=== PATIENT | female | born 1990 | race Caucasian/White ===

== ENCOUNTER → 2019-05-23 | Outpatient (CLI) | payer OTHER ==
[2019-05-23 17:44] LABS: ALBUMIN 4.3 GM/DL (3.2-5.2); ALT/SGPT 45 U/L (12-78); BILIRUBIN,TOTAL 0.3 MG/DL (0.2-1.0); BLOOD UREA NITROGEN 11 MG/DL (7-18); CALCIUM LEVEL 9.3 MG/DL (8.5-10.1); CARBON DIOXIDE LEVEL 27 MEQ/L (21-32); CHLORIDE LEVEL 108 MEQ/L (98-107); CREATININE FOR GFR 0.96 MG/DL (0.55-1.30); GLOMERULAR FILTRATION RATE > 60.0 (>60); GLUCOSE, FASTING 84 MG/DL (70-100); POTASSIUM SERUM 4.1 MEQ/L (3.5-5.1); SODIUM LEVEL 141 MEQ/L (136-145); TOTAL PROTEIN 7.3 GM/DL (6.4-8.2)
[2019-05-23 18:12] LABS: HCG, SERUM QUALITATIVE NEGATIVE (NEGATIVE)
[2019-05-23 18:22] LABS: HEMATOCRIT 44.7 % (36.0-47.0); HEMOGLOBIN 15.4 g/dl (12.0-15.5); MEAN CORPUSCULAR HEMOGLOBIN 30.9 pg (27.0-33.0); MEAN CORPUSCULAR HGB CONC 34.5 g/dl (32.0-36.5); MEAN CORPUSCULAR VOLUME 89.8 fl (80.0-96.0); PLATELET COUNT, AUTOMATED 302 10^3/uL (150-450); RED BLOOD COUNT 4.98 10^6/uL (4.00-5.40)
== END ==
LOC: M SMT 14:08
PROVIDERS: ATTEND Advanced Practice Midwife
DX: E28.2 Polycystic ovarian syndrome (principal)

== ENCOUNTER → 2019-07-16 | Outpatient (CLI) | payer OTHER ==
[2019-07-16 14:11] LABS: FREE T4 0.95 NG/DL (0.76-1.46); THYROID STIMULATING HORMONE 0.957 uIU/ML (0.358-3.740)
[2019-07-16 14:12] LABS: PROLACTIN 13.4 NG/ML
[2019-07-16 14:13] LABS: FOLLICLE STIMULATING HORMONE 5.9 mIU/mL; LUTEINIZING HORMONE 5.1 mIU/mL
[2019-07-20 08:10] LABS: 17 HYDROXY PROGESTERONE 22 ng/dL (.); DEHYDROEPIANDROSTERONE SULFATE 391.9 ug/dL (84.8-378.0); TESTOSTERONE FREE (DIRECT) 4.2 pg/mL (0.0-4.2)
== END ==
LOC: M SMT 11:36
PROVIDERS: ATTEND Advanced Practice Midwife
DX: E28.2 Polycystic ovarian syndrome (principal); Z31.69 Encounter for other general counseling and advice on procreation

== ENCOUNTER → 2019-08-03 | Outpatient (CLI) | payer OTHER | LOC: M SMT 09:57 | PROVIDERS: ATTEND Advanced Practice Midwife | DX: E28.2 Polycystic ovarian syndrome (principal); Z31.69 Encounter for other general counseling and advice on procreation ==

== ENCOUNTER → 2019-09-20 | Outpatient (CLI) | payer OTHER ==
[2019-09-20 17:25] LABS: BASO % 0.3 % (0.0-1.0); EOS # 0.2 10^3/uL (0.0-0.5); EOS % 1.7 % (0.0-3.0); HEMATOCRIT 42.2 % (36.0-47.0); HEMOGLOBIN 14.3 g/dl (12.0-15.5); LYMPH # 1.9 10^3/uL (1.5-5.0); LYMPH % 17.7 % (24.0-44.0); MEAN CORPUSCULAR HEMOGLOBIN 30.8 pg (27.0-33.0); MEAN CORPUSCULAR HGB CONC 33.9 g/dl (32.0-36.5); MEAN CORPUSCULAR VOLUME 90.9 fl (80.0-96.0); MONO # 0.8 10^3/uL (0.0-0.8); MONO % 7.7 % (0.0-5.0); NEUTROPHILS # 7.7 10^3/uL (1.5-8.5); NEUTROPHILS % 72.2 % (36.0-66.0); PLATELET COUNT, AUTOMATED 277 10^3/uL (150-450); RED BLOOD COUNT 4.64 10^6/uL (4.00-5.40); WHITE BLOOD COUNT 10.7 10^3/uL (4.0-10.0)
[2019-09-20 22:12] LABS: CHLAMYDIA DNA AMPLIFICATION NEGATIVE (NEGATIVE); GC DNA AMPLIFICATION NEGATIVE (NEGATIVE)
[2019-09-21 10:56] LABS: HEPATITIS C VIRUS ABY INDEX 0.1 INDEX (<0.8); HIV 1&2 SCREEN CENTAUR NEGATIVE (NEGATIVE); RUBELLA IgG QUALITATIVE IMMUNE (IMMUNE)
== END ==
LOC: M PLALAB 15:09
PROVIDERS: ATTEND Advanced Practice Midwife
DX: O36.80X0 Pregnancy with inconclusive fetal viability, not applicable or unspecified (principal); Z3A.00 Weeks of gestation of pregnancy not specified

== ENCOUNTER 2019-10-06 05:00 | Emergency (ER) | payer OTHER ==
[~2019-10-06] VITALS: Ht 154.9 cm; Wt 61.8 kg
[2019-10-06] MEDS ORDERED: METF500T13 PO (05:05)
[2019-10-06] MEDS ORDERED: PREN1TAB11 PO (05:05)
[2019-10-06] MEDS ORDERED: LEVALBUTEROL 1.25 MG/0.5 ML CONCENTRATE NEB INH PRN (06:45)
[2019-10-06] MEDS ORDERED: NS 1,000 ML IV ONE (07:30)
[2019-10-06 08:05] LABS: HEMATOCRIT 37.5 % (36.0-47.0); HEMOGLOBIN 13.1 g/dl (12.0-15.5); MEAN CORPUSCULAR HEMOGLOBIN 31.2 pg (27.0-33.0); MEAN CORPUSCULAR HGB CONC 34.9 g/dl (32.0-36.5); MEAN CORPUSCULAR VOLUME 89.3 fl (80.0-96.0); PLATELET COUNT, AUTOMATED 224 10^3/uL (150-450); WHITE BLOOD COUNT 10.9 10^3/uL (4.0-10.0)
[2019-10-06 08:42] LABS: ALBUMIN 3.3 GM/DL (3.2-5.2); ALT/SGPT 23 U/L (12-78); BILIRUBIN,TOTAL 0.3 MG/DL (0.2-1.0); BLOOD UREA NITROGEN 9 MG/DL (7-18); CALCIUM LEVEL 8.7 MG/DL (8.5-10.1); CARBON DIOXIDE LEVEL 24 MEQ/L (21-32); CHLORIDE LEVEL 107 MEQ/L (98-107); CREATININE FOR GFR 0.66 MG/DL (0.55-1.30); GLOMERULAR FILTRATION RATE > 60.0 (>60); GLUCOSE, FASTING 79 MG/DL (70-100); HCG, SERUM QUANTITATIVE 119152 MIU/ML; SODIUM LEVEL 139 MEQ/L (136-145); TOTAL PROTEIN 6.7 GM/DL (6.4-8.2)
[2019-10-06 09:19] VITALS: BP 118/70
--- NOTE | 2019-10-06 09:43 | REP ---
REASON: Vaginal bleeding. Within the uterus there is an anechoic structure with increased echoes surrounding it consistent with a decidual reaction within the gestational sac there is echogenic material. The mean crown-rump length measurement of which is consistent with a 12 week 4 day gestational age. Based on that the estimated date of delivery is 01/14/2020. Doppler interrogation of the heart shows a heart rate of 155 beats per minute. No chorionic or subchorionic abnormality was noted. Evaluation of the maternal adnexal spaces showed no abnormalities. IMPRESSION:Early OB ultrasound as described above. Electronically Signed by Meño Hutchison DO 10/06/2019 10:21 A
== END 2019-10-06 09:29 | disposition home or self-care (01) ==
LOC: M ED 05:00
DX: O20.9 Hemorrhage in early pregnancy, unspecified (principal); Z3A.12 12 weeks gestation of pregnancy; Z79.84 Long term (current) use of oral hypoglycemic drugs

== ENCOUNTER → 2019-10-18 | Outpatient (CLI) | payer OTHER ==
[~2019-10-18] MED LIST: METF500T13 PO; PREN1TAB11 PO
== END ==
LOC: M PLALAB 14:39
PROVIDERS: ATTEND Advanced Practice Midwife
DX: Z13.79 Encounter for other screening for genetic and chromosomal anomalies (principal)

== ENCOUNTER → 2019-11-15 | Outpatient (REF) | payer OTHER | LOC: M SFHCWAGY 17:09 | PROVIDERS: ATTEND Advanced Practice Midwife | DX: Z34.91 Encounter for supervision of normal pregnancy, unspecified, first trimester (principal) ==

== ENCOUNTER → 2019-11-30 | Outpatient (CLI) | payer OTHER ==
--- NOTE | 2019-11-30 14:20 | REP ---
Clinical: Anatomical evaluation. Comparison: None . Findings: Examination demonstrates a single live intrauterine in transverse (head to maternal right) presentation. motion is identified by technologist. Placenta is noted anterior and grade I without evidence for placenta previa or abruption. Placenta tip is 2 cm from the closed internal os. Amniotic fluid volume is normal. Cervix measures 3.1 cm in length and appears closed. No evidence for nuchal cord. Gestational age by LMP 20 weeks 0 days with ADENIKE 04/18/2020. Gestational age by current measurements 19 weeks 4 days with ADENIKE 04/25/2020 . FHR equals 139 beats per minute. Estimated weight 313 grams ( 41st percentile). Anatomical assessment demonstrates normal structures including cranium, choroid plexus, cavum, cerebellum/posterior fossa, facial features, lungs, four-chamber heart/ventricular outflow tracts, diaphragm, stomach, cord insertion/three-vessel cord, kidneys/bladder, and extremities. Limited evaluation of the spine due to positioning. Impression: 1. Single live intrauterine in transverse lie demonstrating appropriate interval growth. 2. With exception of the spine, anatomical assessment is complete and normal.
== END ==
LOC: M WHC 12:55
PROVIDERS: ATTEND Advanced Practice Midwife
DX: O34.211 Maternal care for low transverse scar from previous cesarean delivery (principal); Z3A.19 19 weeks gestation of pregnancy

== ENCOUNTER → 2019-12-13 | Outpatient (REF) | payer OTHER | LOC: M SFHCWAGY 13:44 | PROVIDERS: ATTEND Advanced Practice Midwife | DX: O34.211 Maternal care for low transverse scar from previous cesarean delivery (principal); Z3A.00 Weeks of gestation of pregnancy not specified | CPT/HCPCS: 87086; G0463 ==

== ENCOUNTER → 2019-12-27 | Outpatient (CLI) | payer OTHER ==
--- NOTE | 2019-12-28 06:35 | REP ---
Clinical: Anatomical evaluation. Comparison: 11/30/2019 . Findings: Examination demonstrates a single live intrauterine in cephalic presentation. motion is identified by technologist. Placenta is noted anterior and grade I and there are suggestions for marginal previa with the placenta measuring 10-15 mm from the internal os. Small amount of funneling is suggested, with the closed portion of the cervix measuring up to 4 cm. Gestational age by LMP 23 weeks 6 days with ADENIKE 04/18/2020 . Gestational age by current measurements 23 weeks for the with ADENIKE 04/20/2020 . FHR equals 133 beats per minute. Estimated weight 671 grams ( 56 percentile). Anatomical assessment demonstrates normal structures including cranium, choroid plexus, cavum, cerebellum/posterior fossa, facial features, lungs, four-chamber heart/ventricular outflow tracts, diaphragm, stomach, cord insertion/three-vessel cord, kidneys/bladder, spine, and extremities. Impression: 1. Single live intrauterine in cephalic presentation demonstrating appropriate interval growth. Anatomical assessment is complete and normal. 2. Anterior grade 1 placenta with tip approximately 10-15 mm from the os. There appears to be a small amount of funneling with a closed cervix measuring up to approximately 4 cm.
== END ==
LOC: M WHC 09:03
PROVIDERS: ATTEND Advanced Practice Midwife
DX: O34.211 Maternal care for low transverse scar from previous cesarean delivery (principal)

== ENCOUNTER → 2020-01-09 | Outpatient (REF) | payer OTHER ==
[2020-01-09 13:36] LABS: HEMATOCRIT 35.1 % (36.0-47.0); HEMOGLOBIN 11.8 g/dl (12.0-15.5); MEAN CORPUSCULAR HEMOGLOBIN 30.6 pg (27.0-33.0); MEAN CORPUSCULAR HGB CONC 33.6 g/dl (32.0-36.5); MEAN CORPUSCULAR VOLUME 91.2 fl (80.0-96.0); PLATELET COUNT, AUTOMATED 244 10^3/uL (150-450); RED BLOOD COUNT 3.85 10^6/uL (4.00-5.40); WHITE BLOOD COUNT 10.3 10^3/uL (4.0-10.0)
== END ==
LOC: M PLALAB 09:17
PROVIDERS: ATTEND Obstetrics & Gynecology
DX: O34.211 Maternal care for low transverse scar from previous cesarean delivery (principal)

== ENCOUNTER → 2020-02-20 | Outpatient (CLI) | payer OTHER ==
--- NOTE | 2020-02-21 03:31 | REP ---
Clinical: Anatomical evaluation. Comparison: 12/27/2019 Findings: Examination demonstrates a single live intrauterine in cephalic presentation. motion is identified by technologist. Placenta is noted anterior and grade I without evidence for placenta previa or abruption. The placenta is 4 cm from the closed internal os. Amniotic fluid volume is normal. Cervix measures 3.1 cm in length and appears closed. No evidence for nuchal cord. Gestational age by LMP 31 weeks 5 days with ADENIKE 04/18/2020 . Gestational age by current measurements 31 weeks 3 days' with ADENIKE 04/20/2020 . FHR equals 142 beats per minute. Amniotic fluid index: 14.3 cm Estimated weight by biometrical measurements 1855 grams ( 46th percentile). Impression: 1. Single live intrauterine in cephalic presentation demonstrating appropriate interval growth. 2. Anterior placenta 4 cm from the closed internal os.
== END ==
LOC: M WHC 14:30
PROVIDERS: ATTEND Nurse Practitioner Women's Health
DX: O34.211 Maternal care for low transverse scar from previous cesarean delivery (principal); Z3A.31 31 weeks gestation of pregnancy; O44.43 Low lying placenta NOS or without hemorrhage, third trimester

== ENCOUNTER 2020-03-10 14:05 | Outpatient (CLI) | payer OTHER ==
[~2020-03-10] VITALS: Ht 152.4 cm; Wt 63.5 kg
[2020-03-10 14:29] VITALS: BP 113/67
[2020-03-10] MEDS ORDERED: MAPA500T2 PO (14:40)
[2020-03-10] MEDS ORDERED: LACTATED RINGER'S 1000 ML IV ONE (14:45)
[2020-03-10] MEDS ORDERED: LR 1,000 ML IV SCH (14:45)
[2020-03-10] MEDS ORDERED: ONDANSETRON 4MG/2ML VIAL IV SCH (15:00)
[2020-03-10 15:15] VITALS: BP 114/68
[2020-03-10 15:21] LABS: APPEARANCE, URINE HAZY (CLEAR); BACTERIA, URINE AUTO NEGATIVE (NEGATIVE); BILIRUBIN, URINE AUTO NEGATIVE (NEGATIVE); BLOOD, URINE BLOOD NEGATIVE (NEGATIVE); CALCIUM OXALATE CRYSTALS SMALL; COLOR, URINE AMBER (YELLOW); GLUCOSE, URINE (UA) AUTO NEGATIVE (NEGATIVE); KETONE, URINE AUTO 1+ mg/dL (NEGATIVE); LEUKOCYTE ESTERASE, URINE AUTO NEGATIVE (NEGATIVE); MUCUS, URINE SMALL (NEGATIVE); NITRITE, URINE AUTO NEGATIVE (NEGATIVE); PROTEIN, URINE AUTO 1+ mg/dL (NEGATIVE); RBC, URINE AUTO 3 /HPF (0-3); SPECIFIC GRAVITY URINE AUTO 1.032 (1.002-1.035); SQUAMOUS EPITHELIAL CELL UR AU 16 /HPF (0-6); WBC, URINE AUTO 4 /HPF (0-3)
--- NOTE | 2020-03-10 15:35 | IPNPDOC ---
Text Note Date of Service The patient was seen on 03/10/20. NOTE Subjective: Patient is a 30-year-old female who is a at 34 weeks 3 days gestation with an ADENIKE of 04/18/20 based off of her LMP and consistent with her first trimester ultrasound. Her has been complicated by a prior section, a low lying placenta that is now resolved, and PCOS that required Clomid to help with ovulation. She presents with cramping and back pain that started this morning. She attempted to take Tylenol and vomited it up. She reports she presented to L&D because the cramping became more consistent and slightly more uncomfortable. Her back pain is not lower but more mid back. Reports pain is the same bilaterally. She reports active movement. She denies leaking of fluid or vaginal bleeding. Past medical history: Epps's Palsy; PCOS with ovulatory dysfunction Surgical history: section; wisdom teeth extraction; tonsillectomy; vagal schwannoma removal Social history: , no history of STDs, denies being a smoker, denies use of drugs or use of alcohol Family history: Hyperlipidemia, HTN; breast cancer, ovarian cancer, prostate cancer; diabetes, anemia, lung cancer Past Pregnancies: 11/09/2017: section of a living child due to arrest of dilation Objective: VS and labs: see below. FHR is 120, moderate variability, positive accelerations, no decelerations. Contractions: 2-6 minutes lasting 20 second to 90 seconds. A+O x3; Respiratory rate is regular with no use of accessory muscles; Abdomen: soft between contractions with mild tightness with palpation of contraction. Negative CVA tenderness. SVE: 1/60/-2, anterior, moderate to soft consistency, with scant bloody show with exam. Assessment: IUP at 34.3 weeks gestation, contractions, renal calculus of right kidney Plan: Saline lock started. Urine sent for UA. LR bolus started and IV Zofran ordered. Patient found to have calcium oxalate in her urine. Renal sono ordered showing a 6x5mm renal calculus in the the lower pole of the right kidney. Patient reports that she is no longer feeling in abdominal cramping but her back pain is still slightly there but it feels better. She rates her pain a 5/10 that is constant. Dose of Flomax given now and 14 days sent to pharmacy. Dose of Percocet given to patient now and order for 15 tabs sent to pharmacy. Reviewed signs that patient needs to call office with including: severe pain, fever, and inability to urinate. Patient has an appointment this week and is to follow-up at her appointment. Discharged to home. Reviewed access to care, kick count, labor signs, and danger signs to report. VS,Fishbone, I+O VS, Fishbone, I+O Vital Signs Label Value Date Time Patient Temperature 98.7 degrees F 03/10/20 142 Temperature Source Temporal 03/10/20 142 Pulse 94 03/10/20 142 Respiratory Rate 16 bpm 03/10/20 142 Blood Pressure Assessment 113/67 (82) 03/10/20 142 Source Automatic Cuff (NIBP) Bedside Pulse Oximetry 100 % 03/10/20 1429 Item Value Date Time White Blood Count 10.8 10^3/uL H 03/10/20 1500 Red Blood Count 3.61 10^6/uL L 03/10/20 1500 Hemoglobin 11.2 g/dl L 03/10/20 1500 Hematocrit 32.4 % L 03/10/20 1500 Mean Corpuscular Volume 89.8 fl 03/10/20 1500 Mean Corpuscular Hemoglobin 31.0 pg 03/10/20 1500 Mean Corpuscular Hemoglobin Concent 34.6 g/dl 03/10/20 1500 Red Cell Distribution Width 12.2 % 03/10/20 1500 Platelet Count 157 10^3/uL 03/10/20 1500 Item Value Date Time Urine Color JANETH 03/10/20 1500 Urine Appearance HAZY 03/10/20 1500 Urine pH 7.0 UNITS 03/10/20 1500 Urine Specific [place] 1.032 03/10/20 1500 Urine Protein 1+ mg/dL H 03/10/20 1500 Urine Glucose (Auto)(UA) NEGATIVE mg/dL 03/10/201499 Urine Ketones (Auto) 1+ mg/dL H 03/10/20 1500 Urine Blood NEGATIVE 03/10/20 1500 Urine Nitrite NEGATIVE 03/10/20 1500 Urine Bilirubin NEGATIVE 03/10/20 1500 Urine Urobilinogen 2.0 mg/dL H 03/10/20 1500 Urine Leukocyte Esterase (Auto) NEGATIVE 03/10/20 1500 Urine WBC (Auto) 4 /HPF H 03/10/20 1500 Urine RBC (Auto) 3 /HPF 03/10/20 1500 Urine Hyaline Casts (Auto) 0 /LPF 03/10/20 1500 Urine Bacteria (Auto) NEGATIVE 03/10/20 1500 Urine Squamous Epithelial Cells 16 /HPF 03/10/20 1500 Urine Calcium Oxalate Cryst (Auto) SMALL 03/10/20 1500 Urine Mucus (Auto) SMALL 03/10/20 1500 EXAMINATION REQUESTED: RENAL US REASON FOR PATIENT VISIT: SEVERE BACK PAIN; CONTRACTIONS REASON FOR EXAMINATION: severe back pain bilaterally with calcium oxalate in urine PROCEDURE INFORMATION: Exam: US Retroperitoneal Limited, Kidneys Exam date and time: 03/10/2020 5:36 PM Age: 30 years old Clinical indication: Other: Back pain; ; Additional info: Severe back pain bilaterally with calcium oxalate in urine TECHNIQUE: Imaging protocol: Real-time ultrasound of the retroperitoneum with image documentation. Examination was focused on the kidneys. COMPARISON: No relevant prior studies available. FINDINGS: Right kidney: Right kidney measures 11 cm in length. There is mild to moderate hydronephrosis. Blood flow is detected. There is an echogenic focus in the lower pole which may represent a calculus measuring 6 x 5 mm. The resistive index is 0.53. Left kidney: Left kidney measures 10.4 cm in length. There is no hydronephrosis and no shadowing calculi. Blood flow is detected. The resistive index is 0.52 Bladder: Bilateral ureteral jets are apparent in the urinary bladder. IMPRESSION: [id number] right hydronephrosis. Both ureters are patent since ureteral jets are apparent. There is a probable nonobstructing calculus in the lower pole of the right kidney measuring 6 x 5 mm. cardiac activity was noted with a heart rate of 141 bpm. Electronically signed by: Christal Roberto On 03/10/2020 17:52:50 P ABDIAS MCWILLIAMS CNM March 10, 2020 15:35
[2020-03-10 15:43] LABS: HEMATOCRIT 32.4 % (36.0-47.0); HEMOGLOBIN 11.2 g/dl (12.0-15.5); MEAN CORPUSCULAR HGB CONC 34.6 g/dl (32.0-36.5); MEAN CORPUSCULAR VOLUME 89.8 fl (80.0-96.0); PLATELET COUNT, AUTOMATED 157 10^3/uL (150-450); RED BLOOD COUNT 3.61 10^6/uL (4.00-5.40); WHITE BLOOD COUNT 10.8 10^3/uL (4.0-10.0)
--- NOTE | 2020-03-10 17:53 | REPVR ---
PROCEDURE INFORMATION: Exam: US Retroperitoneal Limited, Kidneys Exam date and time: 03/10/2020 5:36 PM Age: 30 years old Clinical indication: Other: Back pain; ; Additional info: Severe back pain bilaterally with calcium oxalate in urine TECHNIQUE: Imaging protocol: Real-time ultrasound of the retroperitoneum with image documentation. Examination was focused on the kidneys. COMPARISON: No relevant prior studies available. FINDINGS: Right kidney: Right kidney measures 11 cm in length. There is mild to moderate hydronephrosis. Blood flow is detected. There is an echogenic focus in the lower pole which may represent a calculus measuring 6 x 5 mm. The resistive index is 0.53. Left kidney: Left kidney measures 10.4 cm in length. There is no hydronephrosis and no shadowing calculi. Blood flow is detected. The resistive index is 0.52 Bladder: Bilateral ureteral jets are apparent in the urinary bladder. IMPRESSION: [id number] right hydronephrosis. Both ureters are patent since ureteral jets are apparent. There is a probable nonobstructing calculus in the lower pole of the right kidney measuring 6 x 5 mm. cardiac activity was noted with a heart rate of 141 bpm. Electronically signed by: Christal Roberto On 03/10/2020 17:52:50 PM
[2020-03-10] MEDS ORDERED: FLOM0.4C39 PO (18:19)
[2020-03-10] MEDS ORDERED: PERC5TAB12 PO (18:21)
[2020-03-10] MEDS ORDERED: PERCOCET 5MG/325MG TAB PO ONE (18:30)
[2020-03-10] MEDS ORDERED: TAMSULOSIN 0.4 MG CAP PO SCH (18:30)
[2020-03-10 18:32] VITALS: BP 117/75
== END 2020-03-10 19:18 | disposition home or self-care (01) ==
LOC: M LDO 14:05
PROVIDERS: ATTEND Advanced Practice Midwife
DX: O26.893 Other specified pregnancy related conditions, third trimester (principal); M54.9 Dorsalgia, unspecified; R10.30 Lower abdominal pain, unspecified; O26.833 Pregnancy related renal disease, third trimester; N13.2 Hydronephrosis with renal and ureteral calculous obstruction; Z3A.34 34 weeks gestation of pregnancy
CPT/HCPCS: 59025; 76775; 81001; 85027; 87086; G0378; G0463; J2405

== ENCOUNTER → 2020-03-28 | Outpatient (REF) | payer OTHER ==
[~2020-03-28] MED LIST changes: +FLOM0.4C39 PO; +IBUP80TA PO; +MAPA500T2 PO; +PERC5TAB12 PO; +PERCOCET PO
== END ==
LOC: M PLALAB 12:14
PROVIDERS: ATTEND Advanced Practice Midwife
DX: O34.211 Maternal care for low transverse scar from previous cesarean delivery (principal)
CPT/HCPCS: 36415; 87081; 87186; 87389; G0463

== ENCOUNTER 2020-04-14 07:05 | Inpatient (IN) | payer OTHER ==
[2020-04-14] VITALS (8 sets, daily range): BP systolic 113–135; BP diastolic 70–86
[~2020-04-14] VITALS: Ht 152.4 cm; Wt 66.6 kg
[~2020-04-14 07:05] MED LIST changes: -IBUP80TA PO; -PERCOCET PO
[2020-04-14] MEDS ORDERED: LACTATED RINGER'S 1000 ML IV STA (07:41)
[2020-04-14] MEDS ORDERED: LR 1,000 ML IV SCH ×3 (07:41→11:21)
[2020-04-14] MEDS ORDERED: BICITRA 30ML SOLN UDC PO ONE ×2 (07:45)
[2020-04-14] MEDS ORDERED: LR 1,000 ML IV ONE (07:45)
[2020-04-14] MEDS ORDERED: ceFAZolin SOD 2 GM in IV 1 EA IV ONE ×4 (07:45)
[2020-04-14 08:19] LABS: HEMATOCRIT 34.9 % (36.0-47.0); HEMOGLOBIN 11.8 g/dl (12.0-15.5); MEAN CORPUSCULAR HEMOGLOBIN 30.6 pg (27.0-33.0); MEAN CORPUSCULAR HGB CONC 33.8 g/dl (32.0-36.5); MEAN CORPUSCULAR VOLUME 90.6 fl (80.0-96.0); PLATELET COUNT, AUTOMATED 159 10^3/uL (150-450); RED BLOOD COUNT 3.85 10^6/uL (4.00-5.40); WHITE BLOOD COUNT 10.7 10^3/uL (4.0-10.0)
[2020-04-14] MEDS ORDERED: MORPHINE PRES-FREE INJ 10 MG/10 ML VIAL (J2274) As Ordered ONE (09:39)
[2020-04-14] MEDS ORDERED: OXYTOCIN 30 UNITS IN 0.9% NaCl 500ML IV BAG (J2590) As Ordered ONE ×2 (09:39→11:40)
[2020-04-14] MEDS ORDERED: KETOROLAC 60MG 2ML VIAL As Ordered ONE ×2 (09:42→09:44)
[2020-04-14] MEDS ORDERED: ONDANSETRON 4MG/2ML VIAL As Ordered ONE ×2 (09:42→09:43)
[2020-04-14] MEDS ORDERED: dexameTHASONE 4 MG/ML 1ML VIAL (J1100 PER 1MG) As Ordered ONE ×2 (09:42→09:43)
[2020-04-14] MEDS ORDERED: ePHEDrine SULFATE 25 MG/5 ML(5MG/ML) SYRINGE As Ordered ONE ×2 (09:42→09:43)
[2020-04-14] MEDS ORDERED: PHENYLephrine HCL 500 MCG/5 ML (100MCG/ML) SYRINGE (J2370) As Ordered ONE ×2 (09:42→09:43)
[2020-04-14] MEDS ORDERED: OXYTOCIN INJ 10 UNITS/ML VIAL (J2590) As Ordered ONE (09:42)
[2020-04-14] MEDS ORDERED: NALOXONE INJ 0.4MG/1ML VIAL (J2310 PER 1MG) IV PRN ×2 (10:11)
[2020-04-14] MEDS ORDERED: NALBUPHINE HCL 10 MG/ML AMP (J2300) IV PRN ×2 (10:11→11:45)
[2020-04-14] MEDS ORDERED: ONDANSETRON 4MG/2ML VIAL IV PRN ×2 (10:11→11:30)
[2020-04-14] MEDS ORDERED: METOCLOPRAMIDE INJ 10MG/2ML VIAL (J2765 PER 1) IV PRN (10:11)
[2020-04-14] MEDS ORDERED: diphenhydrAMINE 50MG/ML VIAL (J1200) IV PRN (10:11)
[2020-04-14] MEDS ORDERED: OXYTOCIN DRIP 30 UNITS in IV 1 EA IV SCH (11:21)
[2020-04-14] MEDS ORDERED: PERCOCET 5MG/325MG TAB PO PRN (11:30)
[2020-04-14] MEDS ORDERED: RHOGAM 300 MCG (1500 IU) INJ (J2790) IM SCH (11:30)
[2020-04-14] MEDS ORDERED: DOCUSATE SODIUM 100 MG CAP PO PRN (11:30)
[2020-04-14] MEDS ORDERED: MEASLES,MUMPS,RUBELLA VACCINE INJ (MMR-II) (90707) SC SCH (11:30)
[2020-04-14] MEDS ORDERED: ACETAMINOPHEN 500 MG TAB PO PRN (11:30)
[2020-04-14] MEDS ORDERED: fentaNYL 100 MCG/2 ML INJECTION (J3010) IV PRN (11:45)
[2020-04-14] MEDS: KETOROLAC 30 MG/ML 1ML VIAL IV SCH ×2 (15:56→22:32)
[2020-04-15 02:00] VITALS: BP 100/59
[2020-04-15] MEDS: KETOROLAC 30 MG/ML 1ML VIAL IV SCH (04:33)
[2020-04-15 05:58] VITALS: BP 108/64
[2020-04-15] MEDS: PRENATAL VITAMINS CHEWABLE TABLET PO SCH (07:18)
[2020-04-15 07:43] LABS: HEMATOCRIT 27.4 % (36.0-47.0); MEAN CORPUSCULAR HEMOGLOBIN 30.7 pg (27.0-33.0); MEAN CORPUSCULAR HGB CONC 33.6 g/dl (32.0-36.5); MEAN CORPUSCULAR VOLUME 91.3 fl (80.0-96.0); PLATELET COUNT, AUTOMATED 160 10^3/uL (150-450); WHITE BLOOD COUNT 14.5 10^3/uL (4.0-10.0)
--- NOTE | 2020-04-15 07:51 | IPNPDOC ---
Progress Note Date of Service: Apr 15, 2020 Day#: 1 Progress Note SUBJECT: Patient is a 30-year-old female who is now a who had a repeat section. Her petit was removed. She has been ambulating, voiding spontaneously without issue and tolerating regular diet. Breast feeding without issue. OBJECTIVE: VITAL SIGNS: Within normal limits, afebrile. Alert and oriented times three. Breath sounds clear to auscultation. Heart rate: Regular rate and rhythm, no murmurs, rubs or gallops. Abdomen: Fundus firm at U. Minimal lochia. ASSESSMENT: Day 1 postoperative PLAN: 1. Continue supportive nursing care and pain management. 2. Anticipate discharge to home tomorrow. VS, I&O, 24H, Fishbone Vital Signs/I&O Vital Signs Date Time Temp Pulse Resp B/P (MAP) Pulse Ox O2 Delivery O2 Flow Rate FiO2 04/15/20 05:58 98.6 96 16 108/64 (79) 98 Room Air I&O- Last 24 Hours up to 6 AM 04/15/20 06:00 Intake Total 1900 ml Output Total 2190 ml Balance -290 ml Laboratory Data CBC/BMP ABDIAS MCWILLIAMS CNM Apr 15, 2020 07:51
[2020-04-15 07:52] LABS: HEMOGLOBIN 9.2 g/dl (12.0-15.5)
[2020-04-15] MEDS ORDERED: PRENATAL VITAMINS CHEWABLE TABLET PO SCH (09:00)
[2020-04-15 10:00] VITALS: BP 106/62
[2020-04-15] MEDS: PERCOCET 5MG/325MG TAB PO PRN ×2 (10:25→18:10)
[2020-04-15] MEDS: IBUPROFEN 800 MG TAB PO SCH ×2 (12:08→19:32)
[2020-04-15 14:00] VITALS: BP 111/65
[2020-04-15 18:00] VITALS: BP 117/76
[2020-04-15] MEDS ORDERED: metFORMIN (GLUCOPHAGE) 500 MG TAB PO SCH (18:00)
[2020-04-15 22:00] VITALS: BP 113/60
[2020-04-16 02:00] VITALS: BP 123/75
[2020-04-16] MEDS: IBUPROFEN 800 MG TAB PO SCH ×2 (03:51→11:03)
[2020-04-16 06:00] VITALS: BP 116/61
[2020-04-16] MEDS: PRENATAL VITAMINS CHEWABLE TABLET PO SCH (07:37)
[2020-04-16] MEDS ORDERED: IBUP80TA PO (07:41)
[2020-04-16] MEDS ORDERED: PERCOCET PO (07:41)
--- NOTE | 2020-04-16 07:58 | DS.PDOC ---
Discharge Summary General Date of Admission Apr 14, 2020 at 07:05 Date of Discharge 04/16/2020 Attending Physician: PJ BECKER DO Discharge Summary PROCEDURES PERFORMED DURING STAY: 1. section. 2. Spinal anesthesia. ADMITTING DIAGNOSES: 1.. History of prior section. DISCHARGE DIAGNOSES: 1. With history of prior section. COMPLICATIONS/CHIEF COMPLAINT: Previous Section. HISTORY OF PRESENT ILLNESS: . HOSPITAL COURSE: . DISCHARGE MEDICATIONS: Please see below. ALLERGIES: Please see below. PHYSICAL EXAMINATION ON DISCHARGE: VITAL SIGNS: Please see below. GENERAL: [Well-appearing, no acute distress] ABDOMINAL EXAMINATION: Soft, appropriately tender, fundus below umbilicus. Incision was dressed EXTREMITIES:. If calf tenderness NEUROLOGICAL EXAMINATION: Grossly intact LABORATORY DATA: Please see below. ACTIVITY: Pelvic rest for 6 weeks. DIET: Regular DISCHARGE PLAN: Home DISCHARGE INSTRUCTIONS: 1. Reports severe pain, heavy vaginal bleeding, incisional issues or fever. 2. Follow-up in 2 weeks for incision check. 3. Remain on pelvic rest for 6 weeks. DISCHARGE CONDITION: [Stable]. Vital Signs/I&Os Vital Signs Date Time Temp Pulse Resp B/P (MAP) Pulse Ox O2 Delivery O2 Flow Rate FiO2 04/16/20 06:00 98.1 88 16 116/61 (79) 98 Room Air Discharge Medications Scheduled Ibuprofen (Ibuprofen) 800 Mg Tablet, 800 MG PO Q8H Metformin HCl (Metformin HCl) 500 Mg Tablet, 1 TAB PO DAILY, (Reported) Vit No.124/Iron/Folic ( Vitamin Tablet) 1 Each Tablet, 1 TAB PO DAILY, (Reported) Scheduled PRN Acetaminophen (Mapap) 500 Mg Tablet, 1,000 MG PO for PAIN LEVEL 1-4, (Reported) Oxycodone/Acetaminophen (Oxycodone-Acetaminophen 5-325) 1 Each Tablet, 1-2 TAB PO Q6HP PRN for MILD/MODERATE PAIN (PS 1-7) Allergies Coded Allergies: No Known Allergies (Unverified , 04/07/20) ISIDRA LAMA MD. Apr 16, 2020 07:58
[2020-04-16] MEDS: PERCOCET 5MG/325MG TAB PO PRN (11:03)
== END 2020-04-16 11:55 | disposition home or self-care (01) | DRG 773 ==
LOC: M LDI 07:05 → M OBS 12:39
PROVIDERS: ADMIT Obstetrics & Gynecology; ATTEND Obstetrics & Gynecology
PROC: 10D00Z1 Extraction of Products of Conception, Low, Open Approach (ICD-10-PCS; principal; 2020-04-14 09:30)
DX: O34.211 Maternal care for low transverse scar from previous cesarean delivery (principal); Z37.0 Single live birth; Z3A.39 39 weeks gestation of pregnancy